=== PATIENT | male | born 2000 ===

== ENCOUNTER 2019-05-01 14:57 | Outpatient (CLI) | payer OTHER ==
--- NOTE | 2019-05-01 16:29 | MRI ---
MRI OF THE RIGHT TIBIA AND FIBULA PERFORMED WITHOUT CONTRAST ENHANCEMENT: 05/01/19 HISTORY: Right leg pain for the past three weeks after stepping in a hole and twisting it while running. There appears to be some minimal marrow edema change along the medial edge of the tibia at the knee j oint. This is incompletely assessed on this examination but does appear to represent a focus of proba ble bone contusion. There is an area of marrow edema change which is located at the junction of the middle and distal thi rds of the tibia. This is located just below the level of a vessel within the cortex which on the sag ittal views almost has the appearance of fracture but does appear to represent a vessel. In the regio n of the stress reaction, I do not see any fracture. There is soft tissue edema change along the med ial side of the tibia in this region. IMPRESSION: Focus of stress type reaction along the medial aspect of the tibia near the junction of the middle an d distal thirds. POS: [facility]
--- NOTE | 2019-05-04 09:14 | MRI ---
MRI Lower Ext Jt Rt ankle performed WO Con HISTORY: Ankle pain for the past 3 weeks after stepping in hole. COMPARISON: None. FINDINGS: The Achilles tendon shows minimal tendinosis. The anterior extensor tendon group is normal. The peroneus longus and brevis tendons are intact. Trace tenosynovitis changes of the posterior tibialis tendon are present. The flexor digitorum longus and flexor hallucis longus tendons are intact. Sinus tarsi region appears unremarkable. Plantar fascia is normal in appearance. There is no evidence of any osteochondral lesion of the talar dome. Ankle ligamentous structures appe ar unremarkable. There are edema changes suggesting bone contusion involving the more plantar surface of the middle cu neiform and similar edema changes of the base of the second metatarsal without any definite fractures. Edema changes are at the level of Lisfranc's ligament which does appear intact. The remain barry the metatarsals appear unremarkable. IMPRESSION: 1. Marrow edema changes compatible with stress type reaction or contusion involving the plantar surfa ce of the middle cuneiform and base of second metatarsal.
== END 2019-05-01 14:58 | disposition home or self-care (01) ==
LOC: BICMRI 14:57
PROVIDERS: ATTEND Orthopaedic Surgery
DX: M79.604 Pain in right leg (principal); R93.7 Abnormal findings on diagnostic imaging of other parts of musculoskeletal system